=== PATIENT | male | born 1975 | race Caucasian/White ===

== ENCOUNTER → 2018-01-18 | Day surgery (SDC) | payer OTHER ==
[~2018-01-18] MED LIST: ESOM20CA PO; IV RINGERS,LACTATED 1000ML 1,000 ML IV SCH; LIDOCAINE 1% PF 2 ML VIAL. ID PRN; MIDAZOLAM HCL/PF 2 MG/2 ML VIAL. IV PRN; PROPOFOL 20 ML IV ONE; fentaNYL PF VIAL 100 MCG/2 ML VIAL IV PRN
[2018-01-18 14:12] VITALS: BP 114/72
--- NOTE | 2018-01-22 09:07 | PATHOLOGY ---
[facility] Accession Number: [id number] . 01 Material submitted: . DISTAL ESOPHAGEAL BIOPSY . 01 Clinical history: . Pre-OP DX: Hx Mensah's, dysphagia Post-OP DX: Mensah's, Schatzki's ring . 02 Diagnosis: Esophagus, distal, biopsy: - Squamocolumnar epithelium with mild to moderate chronic inflammation. - No evidence of intestinal metaplasia. . (SKM:vjm;01/19/2018) AGA/01/19/2018 . 02 Electronically signed: . Gilson Leger MD, Pathologist NPI- [id number] . 01 Gross description: . Received in formalin labeled "Saturnino, Galo, distal esophageal BX," are 2 segments of parkinson soft tissue measuring 0.9 x 0.3 x 0.2 cm in aggregate dimensions and ranging from 0.4 to 0.5 cm in maximum dimension. The specimen is submitted entirely in cassette A1. (TSD; 01/18/2018) TOB/TOB . 02 Pathologist provided ICD-10: K21.0 . 02 CPT . 580295 Specimen Comment: A courtesy copy of this report has been sent to Specimen Comment: [phone], . Specimen Comment: Report sent to / DR FONSECA Performed at: 01 [facility] [address] [facility] [address], [place] [id number] MD Yuval Rojas MD Phone: [phone] Performed at: 02 [facility] [address], [place] [id number] MD Phong Cage MD Phone: [phone]
== END | disposition home or self-care (01) ==
LOC: SURG 12:47
PROVIDERS: ATTEND Internal Medicine Gastroenterology
DX: K22.2 Esophageal obstruction (principal); K21.0 Gastro-esophageal reflux disease with esophagitis; M19.90 Unspecified osteoarthritis, unspecified site; G47.30 Sleep apnea, unspecified; Z82.3 Family history of stroke; Z83.3 Family history of diabetes mellitus; Z82.49 Family history of ischemic heart disease and other diseases of the circulatory system; Z72.89 Other problems related to lifestyle; Z87.891 Personal history of nicotine dependence; Z79.899 Other long term (current) drug therapy; Z98.52 Vasectomy status; Z98.890 Other specified postprocedural states
CPT/HCPCS: 43239; 43450; J2704